=== PATIENT | female | born 1950 | race African-American/Black ===

== ENCOUNTER 2016-12-17 17:11 | Emergency (ER) | payer MEDICARE, OTHER ==
[~2016-12-17] VITALS: Ht 170.2 cm; Wt 108.9 kg
[~2016-12-17 17:11] MED LIST: ALPR0.5T6 PO; AZIT250T6 PO; BUPR150T11 PO; CEPH-264 PO; CYCL10TA2 PO; ERGO500012 PO; ESCI10TA PO; FLUT1DIS IH; FURO-68 PO; HYDR-971 PO; HYDR200T5 PO; LISI1TAB7 PO; MELO-150 PO; MOME17SP NS; OMEP40CA5 PO; ONDA4TAB10 SL; POTA10TA31 PO; PRED2.5T PO; PRED20TA PO; PROM6.25 PO; TIOT18CA IH
[2016-12-17 17:45] VITALS: BP 151/81
[2016-12-17] MEDS ORDERED: PREDNISONE 20 MG TABLET PO ONE (18:15)
[2016-12-17] MEDS ORDERED: OXYCODONE/APAP 5/325 TABLET. PO ONE (18:15)
[2016-12-17] MEDS ORDERED: PRED50TA PO (18:26)
--- NOTE | 2016-12-17 18:27 | PHYS DOC ---
Past Medical History Past Medical History: Anxiety, Arthritis, Asthma, CHF, COPD, GERD, Hypertension , Other Additional Past Medical Histor: RA Past Surgical History: No Surgical History Alcohol Use: Occasionally Drug Use: None Adult General Chief Complaint Chief Complaint: LOWER EXTREMITY SWELLING HPI HPI This is a 66-year-old female is had some swelling to her right dorsum of her hand as well as bilateral lower extremities. Patient has had this before. Patient does have history of rheumatoid arthritis and states she has had swelling with her rheumatoid before. She denies any chest pain or shortness breath. She denies any history of heart failure. Patient does take anti- inflammatories and does state steroids have helped her symptoms in the past. She states her pain is a 7/10 on the pain scale in the extremities described. Review of Systems Review of Systems Constitutional: Denies fever or chills [] Eyes: Denies change in visual acuity, redness, or eye pain [] HENT: Denies nasal congestion or sore throat [] Respiratory: Denies cough or shortness of breath [] Cardiovascular: No additional information not addressed in HPI [] GI: Denies abdominal pain, nausea, vomiting, bloody stools or diarrhea [] : Denies dysuria or hematuria [] Musculoskeletal: Denies back pain, has joint pain [] Integument: Denies rash or skin lesions [] Neurologic: Denies headache, focal weakness or sensory changes [] Endocrine: Denies polyuria or polydipsia [] Current Medications Current Medications Current Medications Medications (Trade) Dose Ordered Sig/Andre Start Time Stop Time Status Last Admin Dose Admin Oxycodone/ Acetaminophen (Percocet 5/325) 1 tab 1X ONCE 12/17/16 18:15 12/17/16 18:16 DC 12/17/16 18:14 1 TAB Prednisone (Prednisone) 60 mg 1X ONCE 12/17/16 18:15 12/17/16 18:16 DC 12/17/16 18:14 60 MG Allergies Allergies Allergies Coded Allergies Type Severity Reaction Last Updated Verified aspirin Allergy Intermediate Swelling 09/01/14 No Physical Exam Physical Exam Constitutional: Well developed, well nourished, no acute distress, non-toxic appearance. [] HENT: Normocephalic, atraumatic, bilateral external ears normal, oropharynx moist, no oral exudates, nose normal. [] Eyes: PERRLA, EOMI, conjunctiva normal, no discharge. [] Neck: Normal range of motion, no tenderness, supple, no stridor. [] Cardiovascular:Heart rate regular rhythm, no murmur [] Lungs & Thorax: Bilateral breath sounds clear to auscultation [] Abdomen: Bowel sounds normal, soft, no tenderness, no masses, no pulsatile masses. [] Skin: Warm, dry, no erythema, no rash. [] Back: No tenderness, no CVA tenderness. [] Extremities: Moderate tenderness and swelling to the dorsum of the right hand, no cyanosis, no clubbing, ROM intact, mild edema of the bilateral lower extremities. [] Neurologic: Alert and oriented X 3, normal motor function, normal sensory function, no focal deficits noted. [] Psychologic: Affect normal, judgement normal, mood normal. [] Current Patient Data Vital Signs Vital Signs Date Time Temp Pulse Resp B/P Pulse Ox O2 Delivery O2 Flow Rate FiO2 12/17/16 17:45 98.3 79 20 151/81 97 Room Air 98.3 EKG EKG [] Radiology/Procedures Radiology/Procedures [] Course & Med Decision Making Course & Med Decision Making Pertinent Labs and Imaging studies reviewed. (See chart for details) This nontoxic appearance 66-year-old female has swelling in her upper extremity and lower extremities and history of rheumatoid arthritis. I do not see any indication at this time to perform any laboratory workup. I will be prescribing her a course of prednisone for her symptoms and telling her to follow-up over the next several days for her symptoms. I administered 1 dose of Percocet and prednisone here. I will be discharging her with a course of prednisone with no pain meds. I will encourage her to continue to take her anti-inflammatories as I believe her symptoms are all inflammatory in etiology. Dragon Disclaimer Dragon Disclaimer This electronic medical record was generated, in whole or in part, using a voice recognition dictation system. Departure Departure Impression: Primary Impression: Swelling Additional Impression: Rheumatoid arthritis flare Disposition: 01 HOME, SELF-CARE Condition: STABLE Referrals: NO PCP (PCP) Patient Instructions: Arthritis, Nonspecific, [id number] Additional Instructions: Please follow up with your primary doctor in 2-3 days for your swelling and pain. Take your steroid as prescribed. Return to the ER if you develop any worsening of your symptoms. Scripts Prednisone 50 Mg Tablet1 Tab PO DAILY #5 TAB Prov:MORAIMA PERES DO 12/17/16 Problem Qualifiers MORAIMA PERES DO Dec 17, 2016 18:27
== END 2016-12-17 18:34 | disposition home or self-care (01) ==
LOC: ER 17:11
DX: M06.89 Other specified rheumatoid arthritis, multiple sites (principal); F41.9 Anxiety disorder, unspecified; J45.909 Unspecified asthma, uncomplicated; I11.0 Hypertensive heart disease with heart failure; I50.9 Heart failure, unspecified; J44.9 Chronic obstructive pulmonary disease, unspecified; K21.9 Gastro-esophageal reflux disease without esophagitis; Z79.1 Long term (current) use of non-steroidal anti-inflammatories (NSAID); Z79.52 Long term (current) use of systemic steroids; Z88.6 Allergy status to analgesic agent
CPT/HCPCS: 29125; 99284; J7512

== ENCOUNTER 2017-04-29 18:51 | Emergency (ER) | payer MEDICARE, OTHER ==
[~2017-04-29] VITALS: Ht 172.7 cm; Wt 108.9 kg
[~2017-04-29 18:51] MED LIST changes: -ERGO500012 PO; +ERGO500027 PO; -MELO-150 PO; +MELO15TA23 PO; +PRED50TA PO
[2017-04-29 19:20] VITALS: BP 148/84
[2017-04-29] MEDS ORDERED: HYDROcodone/APAP 5/325MG 1 TAB TABLET PO ONE (19:30)
--- NOTE | 2017-04-29 19:49 | PHYS DOC ---
Past Medical History Past Medical History: Anxiety, Arthritis, Asthma, CHF, COPD, GERD, Hypertension , Other Additional Past Medical Histor: RA Past Surgical History: No Surgical History Alcohol Use: Occasionally Drug Use: None Adult General Chief Complaint Chief Complaint: UPPER EXTREMITY PAIN HPI HPI Patient is a 67 year old female with history of hypertension, CHF, anxiety, COPD, and rheumatoid arthritis who presents today with exacerbation of chronic left shoulder pain mild in nature worse on movement for the last 7 days due to rheumatoid arthritis. 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 Review of Systems Review of Systems Constitutional: Denies fever or chills [] Eyes: Denies change in visual acuity, redness, or eye pain [] Musculoskeletal: Left shoulder pain Integument: Denies rash or skin lesions [] Neurologic: Denies headache, focal weakness or sensory changes [] Endocrine: Denies polyuria or polydipsia [] Current Medications Current Medications Current Medications Medications (Trade) Dose Ordered Sig/Andre Start Time Stop Time Status Last Admin Dose Admin Acetaminophen/ Hydrocodone Bitart (Lortab 5/325) 2 tab 1X ONCE 04/29/17 19:30 04/29/17 19:32 DC 04/29/17 19:46 2 TAB Allergies Allergies Allergies Coded Allergies Type Severity Reaction Last Updated Verified aspirin Allergy Intermediate Swelling 09/01/14 No Physical Exam Physical Exam Constitutional: Well developed, well nourished, no acute distress, non-toxic appearance. [] HENT: Normocephalic, atraumatic, bilateral external ears normal, oropharynx moist, no oral exudates, nose normal. [] Skin: Warm, dry, no erythema, no rash. [] Back: No tenderness, no CVA tenderness. [] Extremities: Left shoulder with no obvious edema and no obvious ecchymosis, tenderness diffusely throughout the left shoulder. Full range of motion to the left shoulder. Adequate abduction and adduction of the left shoulder. Adequate plantar flexion and dorsiflexion of the left forearm. +2 left radial pulse. Cap refill less than 2 seconds left upper extremity. Sensation intact to the left upper extremity. Neurologic: Alert and oriented X 3, normal motor function, normal sensory function, no focal deficits noted. [] Psychologic: Affect normal, judgement normal, mood normal. [] Current Patient Data Vital Signs Vital Signs Date Time Temp Pulse Resp B/P (MAP) Pulse Ox O2 Delivery O2 Flow Rate FiO2 04/29/17 19:46 Room Air 04/29/17 19:20 98.0 63 20 148/84 (105) 98 98.0 EKG EKG [] Radiology/Procedures Radiology/Procedures [] Course & Med Decision Making Course & Med Decision Making Pertinent Labs and Imaging studies reviewed. (See chart for details) Patient is in the ED with exacerbation of left shoulder pain due to rheumatoid arthritis. She requested pain medicine in the ED. She was given 2 hydrocodone 7 discharge. 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 Dragon Disclaimer Dragon Disclaimer This electronic medical record was generated, in whole or in part, using a voice recognition dictation system. Departure Departure Impression: Primary Impression: Left shoulder pain Additional Impression: Rheumatoid arthritis flare Disposition: HOME, SELF-CARE Condition: STABLE Referrals: NO PCP (PCP) Follow-up with your salesperson burial needs as soon as possible Patient Instructions: Rheumatoid Arthritis, [id number], Shoulder Pain, Easy- to-Read Additional Instructions: You were seen for ongoing pain due to rheumatoid arthritis. Follow-up with your own doctor or a doctor from the list provided as soon as possible. Problem Qualifiers Primary Impression: Left shoulder pain Chronicity: chronic Qualified Codes: M25.512 - Pain in left shoulder; G89.29 - Other chronic pain BROOKS BERGER APRN Apr 29, 2017 19:49
== END 2017-04-29 19:51 | disposition home or self-care (01) ==
LOC: ER 18:51
DX: G89.29 Other chronic pain (principal); M25.512 Pain in left shoulder; M06.9 Rheumatoid arthritis, unspecified; I11.0 Hypertensive heart disease with heart failure; I50.9 Heart failure, unspecified; J44.9 Chronic obstructive pulmonary disease, unspecified; K21.9 Gastro-esophageal reflux disease without esophagitis; Z88.6 Allergy status to analgesic agent
CPT/HCPCS: 99284

== ENCOUNTER 2018-03-14 20:52 | Emergency (ER) | payer MEDICARE, OTHER ==
[2018-03-14] MEDS: ACETAMINOPHEN 325 MG TABLET. PO (23:10)
== END 2018-03-14 21:50 | disposition home or self-care (01) ==
LOC: ER 21:50
DX: S82.55XA Nondisplaced fracture of medial malleolus of left tibia, initial encounter for closed fracture (principal); I11.0 Hypertensive heart disease with heart failure; I50.9 Heart failure, unspecified; J44.9 Chronic obstructive pulmonary disease, unspecified; K21.9 Gastro-esophageal reflux disease without esophagitis; M06.9 Rheumatoid arthritis, unspecified; Z88.6 Allergy status to analgesic agent; W18.39XA Other fall on same level, initial encounter; Y93.89 Activity, other specified; Y99.8 Other external cause status; Y92.89 Other specified places as the place of occurrence of the external cause
CPT/HCPCS: 29515; 73110; 73610; 99284-25

== ENCOUNTER → 2018-10-19 | Outpatient (CLI) | payer MEDICARE, OTHER ==
[2018-03-14 21:30] VITALS: BP 134/62
[~2018-10-19] MED LIST changes: -ESCI10TA PO; +ESCITALOPRAM OX10 MG PO; +HYDR-3164 PO; -HYDR-971 PO; -PROM6.25 PO; +PROM6.257 PO
--- NOTE | 2018-10-19 16:06 | RAD ---
Chest, 2 views, 10/19/2018: HISTORY: Shortness of breath and cough Comparison is made to a study from 07/13/2018. The heart size is normal. There is calcific plaquing of the aorta. There is mild parenchymal scarring in the right middle lobe as best seen on the lateral view. No acute infiltrate is seen. There is no evidence of pleural fluid. Moderate spurring is present in the spine. IMPRESSION: No acute cardiopulmonary abnormality is detected. Electronically signed by: Waylon Orellana MD (10/19/2018 4:02 PM) [facility]
== END | disposition home or self-care (01) ==
LOC: RAD 12:04
PROVIDERS: ATTEND Internal Medicine Pulmonary Disease
DX: J98.4 Other disorders of lung (principal)
CPT/HCPCS: 71046

== ENCOUNTER → 2018-12-22 | Outpatient (CLI) | payer MEDICARE, OTHER ==
[2018-03-14 21:30] VITALS: BP 134/62
[2018-12-22 10:50] LABS: BASO % 1 % (0-3); EOS # 0.2 x10^3/uL (0.0-0.7); EOS % 3 % (0-3); HEMATOCRIT 33.3 % (36.0-47.0); LYMPH # 1.8 x10^3/uL (1.0-4.8); LYMPH % 27 % (24-48); MEAN CORPUSCULAR HEMOGLOBIN 33 pg (25-35); MEAN CORPUSCULAR HGB CONC 33 g/dL (31-37); MEAN CORPUSCULAR VOLUME 101 fL (79-100); MONO # 0.5 x10^3/uL (0.0-1.1); MONO % 7 % (0-9); NEUT # 4.2 x10^3uL (1.8-7.7); NEUT % 62 % (31-73); PLATELET COUNT 278 x10^3/uL (140-400); RED BLOOD COUNT 3.29 x10^6/uL (3.50-5.40); RED CELL DISTRIBUTION WIDTH 15.2 % (11.5-14.5); WHITE BLOOD COUNT 6.7 x10^3/uL (4.0-11.0)
[2018-12-22 11:23] LABS: ALBUMIN 3.7 g/dL (3.4-5.0); CALCIUM 9.1 mg/dL (8.5-10.1); CREATININE 1.1 mg/dL (0.6-1.0); GFR 59.9; PHOSPHORUS 3.4 mg/dL (2.6-4.7); POTASSIUM 3.9 mmol/L (3.5-5.1)
[2018-12-22 19:13] LABS: CALCIUM PTH 9.5 mg/dL (8.7-10.3); CREATININE PTH 0.89 mg/dL (0.57-1.00); PHOSPHORUS PTH 3.2 mg/dL (2.5-4.5); PTH INTACT 121 pg/mL (15-65)
[2018-12-22 23:15] LABS: UR PROTEIN RD 44.4 mg/dL (Not Estab.)
== END | disposition home or self-care (01) ==
LOC: LAB 10:12
PROVIDERS: ATTEND Internal Medicine Nephrology
DX: I13.0 Hypertensive heart and chronic kidney disease with heart failure and stage 1 through stage 4 chronic kidney disease, or unspecified chronic kidney disease (principal); N18.3 Chronic kidney disease, stage 3 (moderate); I50.9 Heart failure, unspecified; D63.1 Anemia in chronic kidney disease; Z68.37 Body mass index [BMI] 37.0-37.9, adult
CPT/HCPCS: 36415; 80069; 82570; 82728; 83540; 83550; 83970; 84156; 85025

== ENCOUNTER 2019-01-29 13:50 | Emergency (ER) | payer MEDICARE, OTHER ==
[~2019-01-29] VITALS: Ht 167.6 cm; Wt 111.1 kg
[2019-01-29 15:35] VITALS: BP 120/47
--- NOTE | 2019-01-29 16:03 | PHYS DOC ---
Past Medical History Past Medical History: Anxiety, Arthritis, Asthma, CHF, COPD, GERD, Hypertension , Other Additional Past Medical Histor: RA Past Surgical History: No Surgical History Alcohol Use: Occasionally Drug Use: None Adult General Chief Complaint Chief Complaint: ANKLE PROBLEM HPI HPI Patient is a 69 year old AA female who presents to the emergency Department today with complaints of increased swelling and pain in her left lower extremity for the last 2-3 days. She denies any recent injury, she states that she fractured her left ankle approximately 6 months ago. [facility] but never found out the results of that testing. She denies any lengthly travel by air or car. She denies any chest pain, shortness of breath, numbness, tingling, or weakness of the affected extremity. Patient states she has been wearing an ankle Tomy wrap as she was instructed to do at the [facility] and ankle [place]. Currently, she rates her pain an 8 out of 10 on the pain scale she has been taking hydrocodone her tramadol was prescribed by her primary care doctor for relief of her pain. When she ambulates or moves her ankle the pain increases to a 10 out of 10. Review of Systems Review of Systems Constitutional: Denies fever or chills [] Respiratory: Denies shortness of breath [] Cardiovascular: No additional information not addressed in HPI [] Musculoskeletal: See HPI Integument: Denies rash or skin lesions [] Neurologic: Denies headache, focal weakness or sensory changes [] Allergies Allergies Allergies Coded Allergies Type Severity Reaction Last Updated Verified aspirin Allergy Intermediate Swelling 09/01/14 No Physical Exam Physical Exam Constitutional: Well developed, well nourished, no acute distress, non-toxic appearance, obese. [] HENT: Normocephalic, atraumatic, bilateral external ears normal, nose normal. [] Eyes: conjunctiva normal, no discharge. [] Neck: Normal range of motion, no stridor. [] Abdomen: Bowel sounds normal, soft, no tenderness, no masses, no pulsatile masses. [] Skin: Warm, dry, no erythema, no rash; 2+ edema LLE [] Extremities: No cyanosis, no clubbing, ROM intact; L ankle generalized TTP, ROM intact, 2+ pedal and posterior tibial pulses, cap refill <2 seconds, no visible deformity, no crepitus Neurologic: Alert and oriented X 3, normal motor function, normal sensory function, no focal deficits noted. [] Psychologic: Affect normal, judgement normal, mood normal. [] Current Patient Data Vital Signs Vital Signs Date Time Temp Pulse Resp B/P (MAP) Pulse Ox O2 Delivery O2 Flow Rate FiO2 01/29/19 15:35 98.1 77 120/47 (71) 97 98.1 01/29/19 15:26 20 Room Air EKG EKG [] Radiology/Procedures Radiology/Procedures [] Course & Med Decision Making Course & Med Decision Making Pertinent Labs and Imaging studies reviewed. (See chart for details) 1615- Pt no longer in room left without notifying staff [] Dragon Disclaimer Dragon Disclaimer This electronic medical record was generated, in whole or in part, using a voice recognition dictation system. Departure Departure Impression: Primary Impression: Left against medical advice Referrals: EUGENIO GUNDERSON APRN (PCP) MJ ROSE APRN Jan 29, 2019 16:03
== END 2019-01-29 16:15 | disposition left against medical advice (07) ==
LOC: ER 13:50
DX: M79.605 Pain in left leg (principal); R22.42 Localized swelling, mass and lump, left lower limb; M25.572 Pain in left ankle and joints of left foot; K21.9 Gastro-esophageal reflux disease without esophagitis; I11.9 Hypertensive heart disease without heart failure; I50.9 Heart failure, unspecified; J44.9 Chronic obstructive pulmonary disease, unspecified; R41.0 Disorientation, unspecified; Z87.81 Personal history of (healed) traumatic fracture; Z88.6 Allergy status to analgesic agent
CPT/HCPCS: 99281

== ENCOUNTER 2019-12-23 04:14 | Emergency (ER) | payer MEDICARE, OTHER ==
[~2019-12-23] VITALS: Ht 165.1 cm; Wt 100.0 kg
[~2019-12-23 04:14] MED LIST changes: +LISI1TAB20 PO; -LISI1TAB7 PO; +OMEP40CA45 PO; -OMEP40CA5 PO
[2019-12-23 04:17] VITALS: BP 151/49
--- NOTE | 2019-12-23 04:46 | PHYS DOC ---
Past Medical History Past Medical History: Anxiety, Arthritis, Asthma, CHF, COPD, GERD, Hypert ension, Other Additional Past Medical Histor: RA Past Surgical History: No Surgical History Alcohol Use: Occasionally Drug Use: None Adult General Chief Complaint Chief Complaint: [facility]UR[facility] HPI 69-year-old male with underlying history of hypertension, rheumatoid arthritis presents to the emergency department with acute on chronic bilateral knee pain. Patient states she's had increased pain since last Thursday. She is already on Lortab 7.5 mg, states she went to her rheumatology physician who attempted corticosteroid injection however was unsuccessful. Patient denies any chest pain, shortness breath, nausea, vomiting, headache or visual change. She does have pain is worsened with ambulation. Patient denies any fever. All other ROS negative unless documented in HPI Review of Systems Review of Systems See Above Allergies Allergies Allergies Coded Allergies Type Severity Reaction Last Updated Verified aspirin Allergy Intermediate Swelling 09/01/14 No Physical Exam Physical Exam See Above Constitutional: Well developed, well nourished, no acute distress, non-toxic appearance. [] HENT: Normocephalic, atraumatic, bilateral external ears normal, oropharynx moist, no oral exudates, nose normal. [] Cardiovascular:Heart rate regular rhythm, no murmur [] Lungs & Thorax: Bilateral breath sounds clear to auscultation [] Skin: Warm, dry, no erythema, no rash. [] Back: No tenderness, no CVA tenderness. [] Extremities: No tenderness, no edema. bilateral knee tenderness[] Neurologic: Alert and oriented X 3, no focal deficits noted. [] Psychologic: Affect normal, judgement normal, mood normal. [] EKG EKG [] Radiology/Procedures Radiology/Procedures [] Course & Med Decision Making Course & Med Decision Making Pertinent Labs and Imaging studies reviewed. (See chart for details) []69-year-old male with underlying history of hypertension, rheumatoid arthritis presents to the emergency department with acute on chronic bilateral knee pain. Patient states she's had increased pain since last Thursday. She is already on Lortab 7.5 mg, states she went to her rheumatology physician who attempted corticosteroid injection however was unsuccessful. Patient denies any chest pain, shortness breath, nausea, vomiting, headache or visual change. She does have pain is worsened with ambulation. Patient denies any fever. 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 Departure Departure Impression: Primary Impression: Rheumatoid arthritis flare Disposition: 01 HOME, SELF-CARE Condition: STABLE Referrals: EUGENIO GUNDERSON APRN (PCP) Patient Instructions: Rheumatoid Arthritis, [id number] Additional Instructions: Recommend follow up with PCP 3 - 5 days Return to the ER with worsening symptoms, intractable pain, fever, altered mental status Tylenol/Motrin as needed for pain Continue narcotics as prescribed Recommend following up with rheumatology and PCP as scheduled SHILA PADILLA MD Dec 23, 2019 04:46
[2019-12-23] MEDS ORDERED: DEXAMETHASONE SOD PHOS 4 MG/ML VIAL IM ONE (05:00)
[2019-12-23] MEDS ORDERED: KETOROLAC 60 MG/2 ML VIAL. IM ONE (05:00)
== END 2019-12-23 05:20 | disposition home or self-care (01) ==
LOC: ER 04:14
DX: M06.9 Rheumatoid arthritis, unspecified (principal); G89.29 Other chronic pain; M25.561 Pain in right knee; M25.562 Pain in left knee; I11.0 Hypertensive heart disease with heart failure; I50.9 Heart failure, unspecified; J44.9 Chronic obstructive pulmonary disease, unspecified; K21.9 Gastro-esophageal reflux disease without esophagitis; Z88.6 Allergy status to analgesic agent
CPT/HCPCS: 96372; 99284; J1100; J1885

== ENCOUNTER 2020-03-21 15:58 | Emergency (ER) | payer MEDICARE, OTHER ==
[~2020-03-21] VITALS: Ht 170.2 cm; Wt 113.6 kg
[2020-03-21 16:13] VITALS: BP 151/49
[2020-03-21] MEDS ORDERED: KETOROLAC 60 MG/2 ML VIAL. IM ONE (16:15)
[2020-03-21] MEDS ORDERED: DEXAMETHASONE SOD PHOS 20 MG/5 ML VIAL. IM ONE (16:15)
--- NOTE | 2020-03-21 16:22 | PHYS DOC ---
Past Medical History Past Medical History: Anxiety, Arthritis, Asthma, CHF, COPD, GERD, Hypert ension, Other Additional Past Medical Histor: RA Past Surgical History: No Surgical History Smoking Status: Former Smoker Alcohol Use: Occasionally Drug Use: None General Adult EDM: Chief Complaint: LOWER EXTREMITY SWELLING HPI: HPI: Patient is a 70 year old Female who presents with with left knee and left ankle pain since "the weather changed". She states probably got worse on Thursday. She states when she was here last time she was given a shot of medication and that helped her alot. Patient has a history of rheumatoid arthritis. She states this feels exactly like a flare. She is ambulatory but is slightly limping on the left leg due to mostly her left lateral ankle pain. She rates her pain a 10 out of 10. States she has not taken any pain medications. When I looked back in the chart last time she was here for her rheumatoid arthritis pain she was given a shot of Toradol and Decadron. This is the medication I will give her again. She has a history of remote arthritis, hypertension, CHF, COPD, asthma, arthritis, anxiety, GERD. Review of Systems: Review of Systems: Musculoskeletal: Denies back pain. Left knee and ankle joint pain. [] Heart Score: Risk Factors: Risk Factors: DM, Current or recent (<one month) smoker, HTN, HLP, family history of CAD, obesity. Risk Scores: Score 0 - 3: 2.5% MACE over next 6 weeks - Discharge Home Score 4 - 6: 20.3% MACE over next 6 weeks - Admit for Clinical Observation Score 7 - 10: 72.7% MACE over next 6 weeks - Early Invasive Strategies Allergies: Allergies: Allergies Coded Allergies Type Severity Reaction Last Updated Verified aspirin Allergy Intermediate Swelling 09/01/14 No Physical Exam: PE: Constitutional: Well developed, well nourished, no acute distress, non-toxic appearance. [] HENT: Normocephalic, atraumatic, bilateral external ears normal, oropharynx moist, no oral exudates, nose normal. [] Eyes: PERRLA, EOMI, conjunctiva normal, no discharge. [] Neck: Normal range of motion, no tenderness, supple, no stridor. [] Cardiovascular:Heart rate regular rhythm, no murmur [] Lungs & Thorax: Bilateral breath sounds clear to auscultation [] Abdomen: Bowel sounds normal, soft, no tenderness, no masses, no pulsatile masses. [] Skin: Warm, dry, no erythema, no rash. [] Back: No tenderness, no CVA tenderness. [] Extremities: No tenderness, no cyanosis, no clubbing, Left ankle and knee ROM limited intact due to stiffness and pain, no edema. [] Neurologic: Alert and oriented X 3, normal motor function, normal sensory function, no focal deficits noted. [] Psychologic: Affect normal, judgement normal, mood normal. [] EKG: EKG: [] Radiology/Procedures: Radiology/Procedures: [] Course & Med Decision Making: Course & Med Decision Making Pertinent Labs and Imaging studies reviewed. (See chart for details) No swelling of her joints. Patient's knees bilaterally and her ankles are stiff. Patient states it is mainly painful when she tries to put pressure on her ankles or her extremities when she goes to walk. When asked the quality of the pain she states " I do not know it is my rheumatoid arthritis pain. It just hurts". Pedal pulse strong and present. Cap refill less than 3 seconds. Patient states that the swelling in her bilateral lower extremities which is equally 2+ is normal for her. She denies any numbness or tingling, skin color changes, skin temperature changes. No calf pain tenderness. No unilateral swelling of extremities. Denies any injury. Patient has had a past Left ankle fracture of which she states she has since developed arthritis in. No tenderness to any joints. No redness to any joints. No laxity in joints. Patient is educated that she needs to follow-up either with her primary care or her rheumatoid doctor the next 3 to 5 days. [] Dragon Disclaimer: Monica Disclaimer: This electronic medical record was generated, in whole or in part, using a voice recognition dictation system. Departure Departure Impression: Primary Impression: Left knee pain Qualified Codes: M25.562 - Pain in left knee; G89.29 - Other chronic pain Additional Impression: Left ankle pain Qualified Codes: M25.572 - Pain in left ankle and joints of left foot; G89.29 - Other chronic pain Disposition: 01 HOME, SELF-CARE Condition: STABLE Referrals: SPENSER PRICE MD (PCP) Patient Instructions: Rheumatoid Arthritis Additional Instructions: Follow up with your rheumatoid doctor as soon as possible. JETHRO CHA CIRCULAR SAW EDGE FUSER Mar 21, 2020 16:22
== END 2020-03-21 16:32 | disposition home or self-care (01) ==
LOC: ER 15:58
DX: G89.29 Other chronic pain (principal); M25.562 Pain in left knee; M79.672 Pain in left foot; F41.9 Anxiety disorder, unspecified; M19.90 Unspecified osteoarthritis, unspecified site; J44.9 Chronic obstructive pulmonary disease, unspecified; K21.9 Gastro-esophageal reflux disease without esophagitis; I50.9 Heart failure, unspecified; I11.0 Hypertensive heart disease with heart failure; Z87.891 Personal history of nicotine dependence
CPT/HCPCS: 96372; 99284; J1100; J1885

== ENCOUNTER 2020-09-22 15:53 | Emergency (ER) | payer MEDICARE, OTHER ==
[~2020-09-22] VITALS: Ht 172.7 cm; Wt 100.0 kg
[2020-09-22 16:26] VITALS: BP 158/76
[2020-09-22] MEDS ORDERED: PROM6.257 PO (16:48)
--- NOTE | 2020-09-22 16:50 | PHYS DOC ---
Past Medical History Past Medical History: Anxiety, Arthritis, Asthma, CHF, COPD, GERD, Hypert ension, Other Additional Past Medical Histor: RA Past Surgical History: No Surgical History Smoking Status: Former Smoker Alcohol Use: Occasionally Drug Use: None General Adult EDM: Chief Complaint: COUGH HPI: HPI: Patient is a 70 year old female who presents with a request to have her Phenergan cough syrup refilled. Patient states that she seen her Dr. Price earlier this month and was given a prescription for liquid Phenergan for cough which helps with her chronic cough patient states that she has run out and wishes to have a prescription refill. Patient denies fever, chills, visual changes, nasal congestion, shortness of breath, chest pain, or swelling of her extremities. Patient denies any abdominal pain, nausea, vomiting, diarrhea, constipation. Patient denies any problems urinating, denies any STI concerns. Patient denies any back pains or pain in her joints, patient denies skin rashes, headaches, focal weaknesses, or sensory changes. Patient denies any swelling of her glands, any recent depressions or anxieties, denies homicidal or suicidal ideation. Patient does complain of a chronic cough that she has battled for years stating that her cough has not changed and that it has not become worse nor any better. Review of Systems: Review of Systems: Constitutional: Denies fever or chills. Eyes: Denies change in visual acuity. HENT: Denies nasal congestion or sore throat. Respiratory: Denies shortness of breath. Complains of chronic dry cough. Cardiovascular: Denies chest pain or edema. GI: Denies abdominal pain, nausea, vomiting, bloody stools or diarrhea. : Denies dysuria. Musculoskeletal: Denies back pain or joint pain. Integument: Denies rash. Neurologic: Denies headache, focal weakness or sensory changes. Lymphatic: Denies swollen glands. Psychiatric: Denies depression or anxiety. Denies homicidal or suicidal ideations. Heart Score: Risk Factors: Risk Factors: DM, Current or recent (<one month) smoker, HTN, HLP, family history of CAD, obesity. Risk Scores: Score 0 - 3: 2.5% MACE over next 6 weeks - Discharge Home Score 4 - 6: 20.3% MACE over next 6 weeks - Admit for Clinical Observation Score 7 - 10: 72.7% MACE over next 6 weeks - Early Invasive Strategies Family History: Family History: Family history of hypertension, stroke, diabetes. Current Medications: Spiriva inhalation daily, potassium chloride 10 mEq twice daily, lisinopril/hydrochlorothiazide 20-25 mg daily, Advair [id number] Diskus 1 puff twice daily, vitamin D2 1 capsule daily, meloxicam 15 mg tablets daily, Lasix 40 mg daily. Allergies: Allergies: Allergies Coded Allergies Type Severity Reaction Last Updated Verified aspirin Allergy Intermediate Swelling 09/01/14 No Physical Exam: PE: Constitutional: Well developed, well nourished, no acute distress, non-toxic appearance. HENT: Normocephalic, atraumatic, bilateral external ears normal, oropharynx moist, no oral exudates, nose normal. Eyes: PERRLA, EOMI, conjunctiva normal, no discharge. Neck: Normal range of motion, no tenderness, supple, no stridor. Cardiovascular:Heart rate regular rhythm, no murmur Lungs & Thorax: Bilateral breath sounds clear to auscultation all lung hurd, no cough noted during physical exam. Abdomen: Bowel sounds normal, soft, no tenderness, no masses, no pulsatile masses. Skin: Warm, dry, no erythema, no rash. Back: No tenderness, no CVA tenderness. Extremities: No tenderness, no cyanosis, no clubbing, ROM intact, no edema. Neurologic: Alert and oriented X 3, normal motor function, normal sensory fu nction, no focal deficits noted. Psychologic: Affect normal, judgement normal, mood normal. Current Patient Data: Vital Signs: Vital Signs Date Time Temp Pulse Resp B/P (MAP) Pulse Ox O2 Delivery O2 Flow Rate FiO2 09/22/20 16:26 97.4 53 18 158/76 (103) 100 Room Air 97.4 EKG: EKG: [] Radiology/Procedures: Radiology/Procedures: [] Course & Med Decision Making: Course & Med Decision Making Pertinent Labs and Imaging studies reviewed. (See chart for details) 70-year-old female patient presents emergency department with request to have her cough medicine refilled. Patient states she has a chronic cough which she dealt with for years that has not gotten any better or any worse. Patient states she last received a prescription from her Dr. Price earlier this month. Patient did bring her prescription bottle with her. The patient bottle was empty, and if taken as directed she should have been empty for approximately 1 week however patient states she has only been out of her medication for the last for 5 days. Discussed with patient that she needs to have her prescriptions filled at her physicians office with regular appointments. Discussed with patient that I would prescribe a very small amount in order for her to see her doctor this week. Patient states that she is amenable to this plan, also states that she will follow-up with her doctor for any further medication refills. Patient's physical exam was negative for acute infectious process, nonconcerning for acute infectious process. Patient medication will be refilled, patient amenable to plan, reviewed discharge instructions, return to ER concerns, patient discharged home without incident Dragon Disclaimer: Dragon Disclaimer: This electronic medical record was generated, in whole or in part, using a voice recognition dictation system. Departure Departure Impression: Primary Impression: Bronchitis Disposition: 01 DC HOME SELF CARE/HOMELESS Condition: GOOD Referrals: SPENSER PRICE MD (PCP) Patient Instructions: Bronchitis Additional Instructions: Take medications as prescribed, follow with your Dr. Price for further problems and management with prescriptions. Return to the emergency department for worsening symptoms or further concerns. Scripts Promethazine Hcl (PROMETHAZINE HCL) 6.25 Mg/5 Ml Syrup 5 ML PO TID for COUGH, #90 ML 0 Refills Prov: GABBY MALONEY APRN 09/22/20 GABBY MALONEY APRN Sep 22, 2020 16:50
== END 2020-09-22 17:01 | disposition home or self-care (01) ==
LOC: ER 15:53
DX: J44.9 Chronic obstructive pulmonary disease, unspecified (principal); K21.9 Gastro-esophageal reflux disease without esophagitis; I11.0 Hypertensive heart disease with heart failure; I50.9 Heart failure, unspecified; Z87.891 Personal history of nicotine dependence; Z88.6 Allergy status to analgesic agent
CPT/HCPCS: 99283

== ENCOUNTER 2021-09-24 09:12 | Emergency (ER) | payer MEDICARE, OTHER ==
[~2021-09-24] VITALS: Ht 170.2 cm; Wt 105.0 kg
[~2021-09-24 09:12] MED LIST changes: +CYCL10TA19 PO; -CYCL10TA2 PO; -LISI1TAB20 PO; +LISI1TAB39 PO; -OMEP40CA45 PO; +OMEP40CA7 PO
[2021-09-24 09:20] VITALS: BP 185/96
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
--- NOTE | 2021-09-24 10:16 | RAD ---
Exam Date: 09/24/2021 10:[address] HEAD/BRAIN WO Indication: Reason: headache, confusion / Spl. Instructions: / History: . TECHNIQUE: Head CT was performed without intravenous contrast. One or more of the following dose re duction techniques were utilized: *Automated exposure control (AEC) *Adjustment of mA and/or kV according to patient size *Use of iterative reconstruction technique *CT scan done according to ALARA, or ALARA/IMAGE GENTLY FINDINGS: The ventricles and sulci are normal for the patient's stated age. There is no evidence of acute int racranial hemorrhage, extra-axial collection, mass effect, midline shift, or acute territorial infarc t. No lesion of the skull base or the calvarium is seen. The visualized paranasal sinuses, mastoid ai r cells and orbits are normal in appearance. IMPRESSION: No evidence for acute intracranial abnormality. Electronically signed by: Luis Jean MD (09/24/2021 10:13 AM) [id number]
[2021-09-24 10:32] LABS: BILIRUBIN,URINE MODERATE (NEG); CLARITY,URINE CLEAR; COLOR,URINE YELLOW; NITRITE,URINE NEGATIVE (NEG); PH,URINE 5.5 (<5.0-8.0); PROTEIN,URINE >=300 mg/dL (NEG-TRACE); UROBILINOGEN,URINE 0.2 mg/dL (0.2 mg/dL)
[2021-09-24 10:48] LABS: BACTERIA,URINE 0 /HPF (0-FEW); RBC,URINE 0 /HPF (0-2); WBC,URINE 0 /HPF (0-4)
== END 2021-09-24 11:35 | disposition left against medical advice (07) ==
LOC: ER 09:12
DX: R41.82 Altered mental status, unspecified (principal); R51.9 Headache, unspecified; J44.9 Chronic obstructive pulmonary disease, unspecified; I11.0 Hypertensive heart disease with heart failure; I50.9 Heart failure, unspecified; K21.9 Gastro-esophageal reflux disease without esophagitis; Z87.891 Personal history of nicotine dependence; Z88.6 Allergy status to analgesic agent
CPT/HCPCS: 70450; 81001; 99284-25; 99285-25

== ENCOUNTER 2021-09-30 15:07 | Inpatient (IN) | payer MEDICARE, OTHER ==
[~2021-09-30] VITALS: Ht 172.7 cm; Wt 100.0 kg
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
[2021-09-30] MEDS ORDERED: ZIPRASIDONE IM 20 MG VIAL. IM ONE (16:45)
--- NOTE | 2021-09-30 17:38 | EKG ---
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
--- NOTE | 2021-09-30 17:43 | RAD ---
Exam: CT head INDICATION: Altered mental status TECHNIQUE: Sequential axial images through the head were obtained without the administration of IV co ntrast. Exposure: One or more of the following in the visualized dose reduction techniques were utilized for this examination: 1. Automated exposure control 2. Adjustment of the MA and/or KV according to patient size 3. Use of iterative of reconstructive technique Comparisons: 09/24/2021 FINDINGS: No focal parenchymal lesion or hemorrhage is identified. There is no midline shift or sulcal effaceme nt. Mild patchy evidence in periventricular white matter. No acute vascular territory infarction is ident ified. Sharp-white distinction is preserved. The ventricular system is within normal limits without compression hydrocephalus. The basal cisterns are well maintained. The visualized portions of the paranasal sinuses and mastoid air cells are well-pneumatized. No acute fractures. IMPRESSION: Mild small vessel ischemic change, technically age indeterminate without recent prior imaging. Electronically signed by: Angel Luis Walker MD (09/30/2021 5:41 PM) [facility]
[2021-09-30 17:51] LABS: BASO # 0.1 x10^3/uL (0.0-0.2); BASO % 1 % (0-3); EOS # 0.1 x10^3/uL (0.0-0.7); EOS % 1 % (0-3); HEMATOCRIT 34.4 % (36.0-47.0); HEMOGLOBIN 11.4 g/dL (12.0-15.5); LYMPH # 1.5 x10^3/uL (1.0-4.8); LYMPH % 21 % (24-48); MEAN CORPUSCULAR HEMOGLOBIN 33 pg (25-35); MEAN CORPUSCULAR HGB CONC 33 g/dL (31-37); MEAN CORPUSCULAR VOLUME 100 fL (79-100); MONO # 0.5 x10^3/uL (0.0-1.1); MONO % 8 % (0-9); NEUT # 4.9 x10^3/uL (1.8-7.7); NEUT % 70 % (31-73); PLATELET COUNT 255 x10^3/uL (140-400); RED BLOOD COUNT 3.44 x10^6/uL (3.50-5.40); RED CELL DISTRIBUTION WIDTH 14.7 % (11.5-14.5)
--- NOTE | 2021-09-30 17:51 | RAD ---
Exam: Chest one view INDICATION: Altered mental TECHNIQUE: Frontal view of the chest Comparisons: 10/18/2018 FINDINGS: The cardiomediastinal silhouette and pulmonary vessels are within normal limits. The lung and pleural spaces are clear. IMPRESSION: No acute cardiopulmonary process. Electronically signed by: Angel Luis Walker MD (09/30/2021 5:48 PM) [facility]
[2021-09-30 18:00] LABS: CALCIUM 9.2 mg/dL (8.5-10.1); CREATININE 1.3 mg/dL (0.6-1.0); POTASSIUM 4.1 mmol/L (3.5-5.1)
[2021-09-30 18:04] LABS: BILIRUBIN,URINE NEGATIVE (NEG); CLARITY,URINE CLEAR; COLOR,URINE YELLOW; NITRITE,URINE NEGATIVE (NEG); PROTEIN,URINE 100 mg/dL (NEG-TRACE); UROBILINOGEN,URINE 0.2 mg/dL (0.2 mg/dL)
[2021-09-30 18:12] LABS: BACTERIA,URINE 0 /HPF (0-FEW); RBC,URINE OCC /HPF (0-2); WBC,URINE OCC /HPF (0-4)
[2021-09-30 18:15] LABS: ALBUMIN 3.6 g/dL (3.4-5.0); ALBUMIN/GLOBULIN RATIO 0.8 (1.0-1.7); MAGNESIUM 2.5 mg/dL (1.8-2.4); TOTAL BILIRUBIN 0.4 mg/dL (0.2-1.0); TOTAL PROTEIN 8.3 g/dL (6.4-8.2)
[2021-09-30 18:16] LABS: AMPHETAMINE/METHAMPHETAMINE NEG (NEG); BARBITURATES NEG (NEG); BENZODIAZEPINES NEG (NEG); CANNABINOIDS POS (NEG); COCAINE NEG (NEG); METHADONE NEG (NEG); OPIATES NEG (NEG); PHENCYCLIDINE NEG (NEG)
[2021-10-01] MEDS ORDERED: NITROGLYCERIN SUBLINGUAL 0.4 MG BOTTLE OF 25. SL PRN (05:15)
[2021-10-01] MEDS ORDERED: ONDANSETRON PF 4 MG/2 ML VIAL. IVP PRN (05:15)
[2021-10-01] MEDS ORDERED: ACETAMINOPHEN 325 MG TABLET. PO PRN (05:15)
--- NOTE | 2021-10-01 05:25 | NUR ---
Patient, Maritza Rizvi, received to room 536, agitated, saying we are trying to take her teeth, and her head, patient then becomes quiet, will not answer questions asked per this writer producer, coughing, will not talk to this writer producer regarding having a cold (?), smoking (?). cafeteria monitor applied, she is aggravated with staff, telling us we 'shouldn't touch people there", will not allow us to check her brief, monitoring
[2021-10-01 07:59] VITALS: BP 158/84
--- NOTE | 2021-10-01 10:16 | NUR ---
Pt confused, refusing to answer certain assessment questions. Unable to obtain current medications, pharmacy, etc. Will attempt to obtain when pt oriented, cooperative.
--- NOTE | 2021-10-01 11:02 | NUR ---
SW following. Discussed with RN, pt from home with son, room air, cardiac diet. PAT consult - RN planning to notify SW when pt is appropriate to be seen by PAT. Pt sleeping this morning. SW will continue to follow.
--- NOTE | 2021-10-01 12:05 | NUR ---
Pt with increased agitation, continuously attempting to get up from bed. Unable to be redirected. Pt starts to yell while this RN and TITI Mistry are assist with transfer. Security called in attempts to help redirect pt. Bed alarm in place, pt stating not to turn it off while this RN, security, and [facility] nursing steam and power supervisor in room. Pt educated on need for bed alarm, pt refusing. Pt also refusing any medication. Refusing lunch, states "I think it's poisoned." Requesting bottled water. Bottled water ordered from dietary. Pt uncooperative with POC, continues stating that she wants to go home. Security remains at bedside at this time. Will continue to monitor for changes.
[2021-10-01] MEDS: IV NORMAL SALINE 1000ML BAG 1,000 ML IV SCH ×2 (13:15→21:49)
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
--- NOTE | 2021-10-01 13:30 | NUR ---
Pt going into other pt's rooms, multiple attempts to redirect into own room. Pt continues to be uncooperative. This RN notified security and Dr. Jauregui. No additional orders received at this time. PRN orders in place, pt continues to refuse. [facility], nursing coin machine supervisor also on unit.
[2021-10-01] MEDS ORDERED: cefTRIAXone IV Push 1 GM VIAL. IVP SCH (14:00)
--- NOTE | 2021-10-01 16:09 | NUR ---
Pt continues to walk around unit, yelling "fire" in the hallways, attempts to go into other rooms, unable to be redirected. Easily irritated when instructed to go back into room, pull mask up, etc. This RN called and spoke with son Devonte to update on pt's condition throughout shift. He stated "that's why I brought her here." Did not want to come see her today, stated he would be up tomorrow to see her. , [facility], nursing order takers supervisor, Arina, nurse continuous improvement manager, and Dr. Jauregui all aware of situation. PAT team to come see pt per Courtney, program services planner.
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
[2021-10-01] MEDS: QUEtiapine 25 MG TABLET. PO SCH ×2 (16:30→19:50)
[2021-10-01 19:00] VITALS: BP 145/90
[2021-10-02 03:18] VITALS: BP 141/79
--- NOTE | 2021-10-02 05:32 | NUR ---
Patient Alert with confusion, refused medications would hold pills in mouth till almost melted then spits it out, refused IV medications and flushes, refused library monitor kept in pulled apart and stashed in her pants pocket most of the night, up all night wondering in and out of her room, pacing back and forth, just wondering about, one minute she wanted a shower an other minute refuses it, refused EEG ordered by Dr. Macdonald this A.M., c/o pain all over but when offer Tylenol she refuses it.
[2021-10-02 07:56] LABS: BASO # 0.1 x10^3/uL (0.0-0.2); BASO % 1 % (0-3); EOS # 0.2 x10^3/uL (0.0-0.7); EOS % 3 % (0-3); HEMATOCRIT 33.4 % (36.0-47.0); HEMOGLOBIN 11.2 g/dL (12.0-15.5); LYMPH # 1.8 x10^3/uL (1.0-4.8); LYMPH % 26 % (24-48); MEAN CORPUSCULAR HEMOGLOBIN 33 pg (25-35); MEAN CORPUSCULAR HGB CONC 33 g/dL (31-37); MEAN CORPUSCULAR VOLUME 100 fL (79-100); MONO # 0.6 x10^3/uL (0.0-1.1); MONO % 8 % (0-9); NEUT # 4.4 x10^3/uL (1.8-7.7); NEUT % 63 % (31-73); PLATELET COUNT 208 x10^3/uL (140-400); RED BLOOD COUNT 3.35 x10^6/uL (3.50-5.40); RED CELL DISTRIBUTION WIDTH 14.7 % (11.5-14.5); WHITE BLOOD COUNT 7.1 x10^3/uL (4.0-11.0)
[2021-10-02 08:13] LABS: CALCIUM 9.1 mg/dL (8.5-10.1); CREATININE 1.2 mg/dL (0.6-1.0); GFR 53.7; POTASSIUM 4.2 mmol/L (3.5-5.1)
[2021-10-02] MEDS ORDERED: QUET25TA3 PO (08:52)
[2021-10-02] MEDS: QUEtiapine 25 MG TABLET. PO SCH (09:00)
--- NOTE | 2021-10-02 10:29 | NUR ---
Pt left unit by ambulation at 1025 via private vehicle, accompanied by son, Devonte. Pt's IV removed without complication, refused am VS. Discharge paperwork discussed with pt and son, additional questions by son addressed.
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
--- NOTE | 2021-10-02 11:31 | NUR ---
SW following. Discussed with RN, pt cleared by PAT team. Discharge order for home with self care. RN advised no SW needs. Pt already left unit.
--- NOTE | 2021-10-02 12:04 | PDOC ---
PROGRESS NOTES Date of Service DATE: 10/02/21 TIME: 12:00 Assessment Problems Medical Problems: (1) Altered mental status Status: Acute (2) Delirium Status: Acute Psychosis, positive urine drug screen for marijuana, she does know where she is in the date, so I doubt stroke, dementia, or encephalitis, but more likely a psychiatric issue. Negative EEG Elevated ESR, normal TSH and B12 Plan In between seeing the patient and writing this note, patient has been discharged Quetiapine. Psychiatric assessment team saw her and found her okay I did discuss with the patient's son and told him I thought she was having a nervous breakdown. He says that she has had this before. This discharge was made without my knowledge or consent. Subjective No complaint Objective Vital Signs Date Time Temp Pulse Resp B/P (MAP) Pulse Ox O2 Delivery O2 Flow Rate FiO2 10/02/21 08:30 Room Air 10/02/21 03:18 97.9 74 20 141/79 (99) 98 97.9 10/01/21 23:29 20.0 Intake and Output 10/02/21 07:00 Intake Total 700 ml Balance 700 ml Intake Oral 700 ml # Voids 6 # Bowel Movements 1 Review of Relevant I have reviewed the following items david (where applicable) has been applied. Labs Laboratory Tests Test 09/30/21 17:35 09/30/21 17:40 10/02/21 07:10 Urine Collection Type U cath Urine Color Yellow Urine Clarity Clear Urine pH 5.0 (<5.0-8.0) Urine Specific [place] 1.025 (1.000-1.030) Urine Protein 100 mg/dL (NEG-TRACE) Urine Glucose (UA) Negative mg/dL (NEG) Urine Ketones (Stick) 15 mg/dL (NEG) Urine Blood Large (NEG) Urine Nitrite Negative (NEG) Urine Bilirubin Negative (NEG) Urine Urobilinogen Dipstick 0.2 mg/dL (0.2 mg/dL) Urine Leukocyte Esterase Negative (NEG) Urine RBC Occ /HPF (0-2) Urine WBC Occ /HPF (0-4) Urine Squamous Epithelial Cells Few /LPF Urine Bacteria 0 /HPF (0-FEW) Urine Mucus Slight /LPF Urine Opiates Screen Neg (NEG) Urine Methadone Screen Neg (NEG) Urine Barbiturates Neg (NEG) Urine Phencyclidine Screen Neg (NEG) Urine Amphetamine/Methamphetamine Neg (NEG) Urine Benzodiazepines Screen Neg (NEG) Urine Cocaine Screen Neg (NEG) Urine Cannabinoids Screen Pos (NEG) Urine Ethyl Alcohol Neg (NEG) White Blood Count 7.0 x10^3/uL (4.0-11.0) 7.1 x10^3/uL (4.0-11.0) Red Blood Count 3.44 x10^6/uL (3.50-5.40) 3.35 x10^6/uL (3.50-5.40) Hemoglobin 11.4 g/dL (12.0-15.5) 11.2 g/dL (12.0-15.5) Hematocrit 34.4 % (36.0-47.0) 33.4 % (36.0-47.0) Mean Corpuscular Volume 100 fL (79-100) 100 fL (79-100) Mean Corpuscular Hemoglobin 33 pg (25-35) 33 pg (25-35) Mean Corpuscular Hemoglobin Concent 33 g/dL (31-37) 33 g/dL (31-37) Red Cell Distribution Width 14.7 % (11.5-14.5) 14.7 % (11.5-14.5) Platelet Count 255 x10^3/uL (140-400) 208 x10^3/uL (140-400) Neutrophils (%) (Auto) 70 % (31-73) 63 % (31-73) Lymphocytes (%) (Auto) 21 % (24-48) 26 % (24-48) Monocytes (%) (Auto) 8 % (0-9) 8 % (0-9) Eosinophils (%) (Auto) 1 % (0-3) 3 % (0-3) Basophils (%) (Auto) 1 % (0-3) 1 % (0-3) Neutrophils # (Auto) 4.9 x10^3/uL (1.8-7.7) 4.4 x10^3/uL (1.8-7.7) Lymphocytes # (Auto) 1.5 x10^3/uL (1.0-4.8) 1.8 x10^3/uL (1.0-4.8) Monocytes # (Auto) 0.5 x10^3/uL (0.0-1.1) 0.6 x10^3/uL (0.0-1.1) Eosinophils # (Auto) 0.1 x10^3/uL (0.0-0.7) 0.2 x10^3/uL (0.0-0.7) Basophils # (Auto) 0.1 x10^3/uL (0.0-0.2) 0.1 x10^3/uL (0.0-0.2) Sodium Level 141 mmol/L (136-145) 139 mmol/L (136-145) Potassium Level 4.1 mmol/L (3.5-5.1) 4.2 mmol/L (3.5-5.1) Chloride Level 104 mmol/L (98-107) 105 mmol/L (98-107) Carbon Dioxide Level 24 mmol/L (21-32) 25 mmol/L (21-32) Anion Gap 13 (6-14) 9 (6-14) Blood Urea Nitrogen 46 mg/dL (7-20) 40 mg/dL (7-20) Creatinine 1.3 mg/dL (0.6-1.0) 1.2 mg/dL (0.6-1.0) Estimated GFR (Cockcroft-Gault) 49.0 53.7 BUN/Creatinine Ratio 35 (6-20) Glucose Level 94 mg/dL (70-99) 97 mg/dL (70-99) Lactic Acid Level 1.0 mmol/L (0.4-2.0) Calcium Level 9.2 mg/dL (8.5-10.1) 9.1 mg/dL (8.5-10.1) Magnesium Level 2.5 mg/dL (1.8-2.4) Total Bilirubin 0.4 mg/dL (0.2-1.0) Aspartate Amino Transf (AST/SGOT) 69 U/L (15-37) Alanine Aminotransferase (ALT/SGPT) 44 U/L (14-59) Alkaline Phosphatase 72 U/L (46-116) Ammonia < 10 mcmol/L (11-34) GX-Ibk-[id number]-Type Natriuretic Peptide 172 pg/mL (0-124) Total Protein 8.3 g/dL (6.4-8.2) Albumin 3.6 g/dL (3.4-5.0) Albumin/Globulin Ratio 0.8 (1.0-1.7) Erythrocyte Sedimentation Rate 93 (0-25) Vitamin B12 Level > 2000 pg/mL (247-911) Thyroid Stimulating Hormone (TSH) 1.362 uIU/mL (0.358-3.74) Laboratory Tests Test 10/02/21 07:10 White Blood Count 7.1 x10^3/uL (4.0-11.0) Red Blood Count 3.35 x10^6/uL (3.50-5.40) Hemoglobin 11.2 g/dL (12.0-15.5) Hematocrit 33.4 % (36.0-47.0) Mean Corpuscular Volume 100 fL (79-100) Mean Corpuscular Hemoglobin 33 pg (25-35) Mean Corpuscular Hemoglobin Concent 33 g/dL (31-37) Red Cell Distribution Width 14.7 % (11.5-14.5) Platelet Count 208 x10^3/uL (140-400) Neutrophils (%) (Auto) 63 % (31-73) Lymphocytes (%) (Auto) 26 % (24-48) Monocytes (%) (Auto) 8 % (0-9) Eosinophils (%) (Auto) 3 % (0-3) Basophils (%) (Auto) 1 % (0-3) Neutrophils # (Auto) 4.4 x10^3/uL (1.8-7.7) Lymphocytes # (Auto) 1.8 x10^3/uL (1.0-4.8) Monocytes # (Auto) 0.6 x10^3/uL (0.0-1.1) Eosinophils # (Auto) 0.2 x10^3/uL (0.0-0.7) Basophils # (Auto) 0.1 x10^3/uL (0.0-0.2) Erythrocyte Sedimentation Rate 93 (0-25) Sodium Level 139 mmol/L (136-145) Potassium Level 4.2 mmol/L (3.5-5.1) Chloride Level 105 mmol/L (98-107) Carbon Dioxide Level 25 mmol/L (21-32) Anion Gap 9 (6-14) Blood Urea Nitrogen 40 mg/dL (7-20) Creatinine 1.2 mg/dL (0.6-1.0) Estimated GFR (Cockcroft-Gault) 53.7 Glucose Level 97 mg/dL (70-99) Calcium Level 9.1 mg/dL (8.5-10.1) Vitamin B12 Level > 2000 pg/mL (247-911) Thyroid Stimulating Hormone (TSH) 1.362 uIU/mL (0.358-3.74) Medications Current Medications Lorazepam (Ativan Inj) 1 mg 1X ONCE IVP Last administered on 09/30/21at 16:49; Start 09/30/21 at 15:45; Stop 09/30/21 at 15:46; Status DC Ziprasidone (Geodon Im) 20 mg 1X ONCE IM Last administered on 09/30/21at 16:48; Start 09/30/21 at 16:45; Stop 09/30/21 at 16:46; Status DC Lorazepam (Ativan Inj) 2 mg STK-MED ONCE .ROUTE ; Start 10/01/21 at 00:08; Stop 10/01/21 at 00:09; Status DC Lorazepam (Ativan Inj) 2 mg 1X ONCE IVP Last administered on 10/01/21at 00:13; Start 10/01/21 at 00:30; Stop 10/01/21 at 00:31; Status DC Ondansetron HCl (Zofran) 4 mg PRN Q8HRS PRN IVP NAUSEA/VOMITING 1ST CHOICE; Start 10/01/21 at 05:15; Stop 10/02/21 at 05:14; Status DC Acetaminophen (Tylenol) 650 mg PRN Q4HRS PRN PO FEVER > 100.3'F; Start 10/01/21 at 05:15; Stop 10/02/21 at 05:15; Status DC Nitroglycerin (Nitrostat) 0.4 mg PRN Q5MIN PRN SL CHEST PAIN; Start 10/01/21 at 05:15; Stop 10/02/21 at 05:15; Status DC Lorazepam (Ativan Inj) 1 mg PRN Q4HRS PRN IVP ANXIETY / AGITATION Last administered on 10/01/21at 21:49; Start 10/01/21 at 05:15; Stop 10/02/21 at 10:31; Status DC Ceftriaxone Sodium (Rocephin) 1 gm Q24H IVP ; Start 10/01/21 at 14:00; Stop 10/02/21 at 10:31; Status DC Sodium Chloride 1,000 ml @ 75 mls/hr [id number] IV ; Start 10/01/21 at 13:15; Stop 10/02/21 at 10:31; Status DC Quetiapine Fumarate (SEROquel) 25 mg TID PO Last administered on 10/01/21at 19:50; Start 10/01/21 at 16:30; Stop 10/02/21 at 10:31; Status DC Active Scripts Active Quetiapine Fumarate 25 Mg Tablet 25 Mg PO TID 30 Days Promethazine Hcl 6.25 Mg/5 Ml Syrup 5 Ml PO TID Prednisone 50 Mg Tablet 1 Tab PO DAILY Promethazine Hcl 6.25 Mg/5 Ml Syrup 5 Ml PO TID PRN Keflex (Cephalexin) 500 Mg Capsule 1 Cap PO BID [place] 5-325 Tablet (Acetaminophen/Hydrocodone Bitart) 1 Each Tablet 1 Tab PO PRN Q6HRS PRN Prednisone 20 Mg Tablet 1 Tab PO BID Zofran Odt (Ondansetron) 4 Mg Tab.rapdis 1 Tab SL Q8HRS Azithromycin Tablet (Azithromycin) 250 Mg Tablet 1 Pkg PO UD Reported Lasix (Furosemide) 40 Mg Tablet 1 Tab PO DAILY Bupropion Hcl Sr (Bupropion Hcl) 150 Mg Tablet.er 1 Tab PO BID Omeprazole 40 Mg Capsule.dr 1 Cap PO DAILY Meloxicam 15 Mg Tablet 1 Tab PO DAILY Vitamin D2 (Ergocalciferol (Vitamin D2)) 50,000 Unit Capsule 1 Cap PO WEEKLY Hydroxychloroquine Sulfate 200 Mg Tablet 1 Tab PO BID Prednisone 2.5 Mg Tablet 1 Tab PO DAILY Advair 100-50 Diskus (Fluticasone/Salmeterol) 1 Each Disk.w.dev 1 Puff IH BID Nasonex (Mometasone Furoate) 17 Gm [place].pump 1 [place] NS DAILY Cyclobenzaprine Hcl 10 Mg Tablet 1 Tab PO BID Escitalopram Oxalate 10 Mg Tablet 1 Tab PO DAILY Alprazolam 0.5 Mg Tablet 1 Tab PO BID Spiriva (Tiotropium [place]) 18 Mcg Cap.w.dev 1 Cap IH DAILY Potassium Chloride 10 Meq Tab.er.prt 1 Tab PO BID Lisinopril-Hctz 20-25 Mg Tab (Lisinopril/Hydrochlorothiazide) 1 Each Tablet 1 Tab PO DAILY Vitals/I & O Vital Sign - Last 24 Hours 10/01/21 10/01/21 10/01/21 10/02/21 19:00 19:31 23:29 03:18 Temp 98.3 97.9 98.3 97.9 Pulse 93 74 Resp 20 B/P (MAP) 145/90 (108) 141/79 (99) Pulse Ox 91 98 O2 Delivery Room Air Room Air Room Air Room Air O2 Flow Rate 20.0 10/02/21 08:30 O2 Delivery Room Air Intake and Output 10/01/21 10/01/21 10/02/21 15:00 23:00 07:00 Intake Total 100 ml 240 ml 360 ml Balance 100 ml 240 ml 360 ml Justicifation of Admission Dx: Justifications for Admission: Justification of Admission Dx: N/A OLYA CURTIS MD Oct 02, 2021 12:04
--- NOTE | 2021-10-02 12:07 | EEG ---
DATE OF SERVICE: 10/02/2021 ELECTROENCEPHALOGRAM REPORT EEG NUMBER: [id number] OBJECTIVE: The patient is a 71-year-old female with altered mental status. DESCRIPTION: This is a digital study. Electrodes are placed according to the International 10-20 system. Bipolar and referential montages are available. INTERPRETATION: The waking background consists of 8-9 Hz, 20-50 microvolt activity, symmetrically distributed over parietooccipital regions and reactive to eye opening. The patient was uncooperative with the testing and there is quite a bit of muscle artifact. She does achieve stage 2 sleep. Hyperventilation is not performed. Intermittent photic stimulation is noncontributory. IMPRESSION: This electroencephalogram with the patient awake and asleep is within normal limits. There is no focal, paroxysmal or epileptiform activity. Thank you for letting us help with the patient's care. LAISHA DR: Bernie TID: [id number]
== END 2021-10-02 10:31 | disposition home or self-care (01) | DRG 71 ==
LOC: ER 15:07 → ED HOLD 10-01 00:48 → 5 NORTH 10-01 05:00
PROVIDERS: ADMIT Internal Medicine; ATTEND Internal Medicine
DX: G93.41 Metabolic encephalopathy (principal); I13.0 Hypertensive heart and chronic kidney disease with heart failure and stage 1 through stage 4 chronic kidney disease, or unspecified chronic kidney disease; F29 Unspecified psychosis not due to a substance or known physiological condition; E86.0 Dehydration; E03.9 Hypothyroidism, unspecified; E78.5 Hyperlipidemia, unspecified; I50.9 Heart failure, unspecified; J44.9 Chronic obstructive pulmonary disease, unspecified; M06.9 Rheumatoid arthritis, unspecified; N18.9 Chronic kidney disease, unspecified; Z83.3 Family history of diabetes mellitus; F41.9 Anxiety disorder, unspecified; K21.9 Gastro-esophageal reflux disease without esophagitis; M19.90 Unspecified osteoarthritis, unspecified site; K59.00 Constipation, unspecified
CPT/HCPCS: 36415; 70450; 71045; 80048; 80053; 80307; 81001; 82140; 82607; 83605; 83735; 83880; 84443; 85025; 85651; 93005; 95816; 96374; J2060; J3486; 99285-25; G0378

== ENCOUNTER 2022-04-19 12:49 | Emergency (ER) | payer MEDICARE, OTHER ==
[~2022-04-19] VITALS: Ht 170.2 cm; Wt 95.3 kg
[~2022-04-19 12:49] MED LIST changes: -MOME17SP NS; +MOME17SP5 NS; +QUET25TA3 PO
[2022-04-19 12:55] VITALS: BP 15/60
--- NOTE | 2022-04-19 13:27 | PHYS DOC ---
Past Medical History Past Medical History: Anxiety, Arthritis, Asthma, CHF, COPD, GERD, Hypert ension, Other Additional Past Medical Histor: RA Past Surgical History: No Surgical History Smoking Status: Unknown if ever smoked Alcohol Use: None Drug Use: None General Adult EDM: Chief Complaint: MECHANICAL FALL HPI: HPI: Patient is a 72-year-old female who presents today with right upper arm pain. Patient states that on Thursday she fell hitting her arm against the railing of her deck, she states that she presents today because he is large amount of bruising that is noted in her upper arm and she is concerned by this. Patient denies taking any blood thinners, she denies hitting her head, she denies any loss of consciousness. Patient states that she normally walks with a assist device on a normal basis and this injury has not hindered her using her assist device at this time. Review of Systems: Review of Systems: Constitutional: Denies fever or chills. [] Eyes: Denies change in visual acuity. [] HENT: Denies nasal congestion or sore throat. [] Respiratory: Denies cough or shortness of breath. [] Cardiovascular: Denies chest pain or edema. [] GI: Denies abdominal pain, nausea, vomiting, bloody stools or diarrhea. [] : Denies dysuria. [] Musculoskeletal: Denies back pain or joint pain. [] Integument: Right upper arm bruising Neurologic: Denies headache, focal weakness or sensory changes. [] Endocrine: Denies polyuria or polydipsia. [] Lymphatic: Denies swollen glands. [] Psychiatric: Denies depression or anxiety. [] Heart Score: C/O Chest Pain: No Risk Factors: Risk Factors: DM, Current or recent (<one month) smoker, HTN, HLP, family history of CAD, obesity. Risk Scores: Score 0 - 3: 2.5% MACE over next 6 weeks - Discharge Home Score 4 - 6: 20.3% MACE over next 6 weeks - Admit for Clinical Observation Score 7 - 10: 72.7% MACE over next 6 weeks - Early Invasive Strategies Allergies: Allergies: Allergies Coded Allergies Type Severity Reaction Last Updated Verified aspirin Allergy Intermediate Swelling 09/01/14 No Physical Exam: PE: Constitutional: Well developed, well nourished, no acute distress, non-toxic appearance. [] HENT: Normocephalic, atraumatic, bilateral external ears normal, oropharynx moist, no oral exudates, nose normal. [] Eyes: PERRLA, EOMI, conjunctiva normal, no discharge. [] Neck: Normal range of motion, no tenderness, supple, no stridor. [] Cardiovascular:Heart rate regular rhythm, no murmur [] Lungs & Thorax: Bilateral breath sounds clear to auscultation [] Abdomen: Bowel sounds normal, soft, no tenderness, no masses, no pulsatile masses. [] Skin: Patient has a large ecchymotic area from the mid humerus down past the elbow on the lateral aspect of the arm, there is no lacerations, abrasions, or wounds noted. Patient also has some bruising noted on her left upper arm she has a 2 x 1 cm area of ecchymosis on the inner aspect of her humerus patient also has some bruising noted on her left hand on the volar aspect. Back: No tenderness, no CVA tenderness. [] Extremities: Bilateral arms within normal limits range of motion, no sensory or vascular defects noted, radial pulse is 2+ distal to the bruising, cap refills less than 2 seconds, Neurologic: Alert and oriented X 3, normal motor function, normal sensory function, no focal deficits noted. [] Psychologic: Affect normal, judgement normal, mood normal. [] Current Patient Data: Vital Signs: Vital Signs Date Time Temp Pulse Resp B/P (MAP) Pulse Ox O2 Delivery O2 Flow Rate FiO2 04/19/22 12:55 98.8 77 18 15/60 (45) 96 Room Air 98.8 EKG: EKG: [] Radiology/Procedures: Radiology/Procedures: REASON: fell and hit arm PROCEDURE: HUMERUS RIGHT Right humerus 2 views. HISTORY: Fell with trauma to right arm, pain 2 views were taken of the right humerus. There is not evidence of an acute fracture or osseous abnormality. There is no dislocation at the shoulder. There is mild widening of the AC joint probably old surgery but prior trauma is possible. IMPRESSION: 1. No fracture or acute osseous abnormality right humerus. Electronically signed by: Ramon Rondon MD (04/19/2022 1:44 PM) [id number] [] Course & Med Decision Making: Course & Med Decision Making Pertinent Labs and Imaging studies reviewed. (See chart for details) I reviewed radiological results with Dr. Gutierrez no acute findings noted, patient is in no acute distress and is able to use her assist device and ambulate without any difficulty as well as move her upper extremities without any difficulty. Patient will be discharged to home to follow-up with her primary care physician as well as take [id number] Tylenol as needed for pain. Patient will also be given the name of the orthopedic doctor on-call so that she may follow-up with them for any further concerns she may have. Dragon Disclaimer: Dragon Disclaimer: This electronic medical record was generated, in whole or in part, using a voice recognition dictation system. Departure Departure Impression: Primary Impression: Contusion, arm, upper Qualified Codes: S40.021A - Contusion of right upper arm, initial encounter Disposition: HOME / SELF CARE / HOMELESS Condition: STABLE Referrals: SPENSER PRICE MD (PCP) NADER PALACIOS DO Patient Instructions: Contusion Additional Instructions: Ice 20 minutes on 3-4 times daily to help with localized pain relief and swelling Tylenol as needed for pain Follow-up with your primary care physician or the orthopedic doctor on-call for any further evaluation and management of this arm pain. COREY ACEVES ANALYSIS MGR April 19, 2022 13:27
[2022-04-19] MEDS ORDERED: ACETAMINOPHEN 325 MG TABLET. PO ONE (13:30)
--- NOTE | 2022-04-19 13:46 | RAD ---
Right humerus 2 views. HISTORY: Fell with trauma to right arm, pain 2 views were taken of the right humerus. There is not evidence of an acute fracture or osseous abnorm ality. There is no dislocation at the shoulder. There is mild widening of the AC joint probably old s urgery but prior trauma is possible. IMPRESSION: 1. No fracture or acute osseous abnormality right humerus. Electronically signed by: Ramon Rondon MD (04/19/2022 1:44 PM) [id number]
== END 2022-04-19 13:54 | disposition home or self-care (01) ==
LOC: ER 12:49
DX: S40.021A Contusion of right upper arm, initial encounter (principal); J44.9 Chronic obstructive pulmonary disease, unspecified; K21.9 Gastro-esophageal reflux disease without esophagitis; I11.0 Hypertensive heart disease with heart failure; I50.9 Heart failure, unspecified; Z88.6 Allergy status to analgesic agent; W18.09XA Striking against other object with subsequent fall, initial encounter; Y93.89 Activity, other specified; Y92.89 Other specified places as the place of occurrence of the external cause; Y99.8 Other external cause status
CPT/HCPCS: 73060; 99283

== ENCOUNTER 2022-04-22 12:48 | Emergency (ER) | payer MEDICARE, OTHER ==
[~2022-04-22] VITALS: Ht 170.2 cm; Wt 93.8 kg
[2022-04-22 12:50] VITALS: BP 181/89
--- NOTE | 2022-04-22 14:18 | PHYS DOC ---
Past Medical History Past Medical History: Anxiety, Arthritis, Asthma, CHF, COPD, GERD, Hypert ension, Other Additional Past Medical Histor: RA Past Surgical History: No Surgical History Smoking Status: Unknown if ever smoked Alcohol Use: None Drug Use: None General Adult EDM: Chief Complaint: UPPER EXTREMITY PAIN HPI: HPI: Patient is a 72 year old female who presents with was here on April 19 for a fall and diagnosed with a contusion to the right arm. Patient states the reason why she is here because she wants blood drawn and that when she was here the last time they offered to draw some blood and she refused. Patient does not know what lab they wanted to draw. She states she cannot get into her primary care until next month. She denies chest pain, shortness of air, headache, dizziness, syncope, urinary symptoms, back pain, abdominal pain, nausea, vomiting, diarrhea, fever, numbness tingling, focal weakness, vision change, cough. States her arm still has some pain 4 out of 10. Review of Systems: Review of Systems: Constitutional: Denies fever or chills. [] Eyes: Denies change in visual acuity. [] HENT: Denies nasal congestion or sore throat. [] Respiratory: Denies cough or shortness of breath. [] Cardiovascular: Denies chest pain or edema. [] GI: Denies abdominal pain, nausea, vomiting, bloody stools or diarrhea. [] : Denies dysuria. [] Musculoskeletal: Denies back pain or joint pain. + Right arm pain [] Integument: Denies rash. + Right upper arm contusion [] Neurologic: Denies headache, focal weakness or sensory changes. [] Endocrine: Denies polyuria or polydipsia. [] Lymphatic: Denies swollen glands. [] Psychiatric: Denies depression or anxiety. [] Heart Score: C/O Chest Pain: No Risk Factors: Risk Factors: DM, Current or recent (<one month) smoker, HTN, HLP, family history of CAD, obesity. Risk Scores: Score 0 - 3: 2.5% MACE over next 6 weeks - Discharge Home Score 4 - 6: 20.3% MACE over next 6 weeks - Admit for Clinical Observation Score 7 - 10: 72.7% MACE over next 6 weeks - Early Invasive Strategies Allergies: Allergies: Allergies Coded Allergies Type Severity Reaction Last Updated Verified aspirin Allergy Intermediate Swelling 09/01/14 No Physical Exam: PE: Constitutional: Well developed, well nourished, no acute distress, non-toxic appearance. [] HENT: Normocephalic, atraumatic, bilateral external ears normal, oropharynx moist, no oral exudates, nose normal. [] Eyes: PERRLA, EOMI, conjunctiva normal, no discharge. [] Neck: Normal range of motion, no tenderness, supple, no stridor. [] Cardiovascular:Heart rate regular rhythm, no murmur [] Lungs & Thorax: Bilateral breath sounds clear to auscultation [] Abdomen: Bowel sounds normal, soft, no tenderness, no masses, no pulsatile masses. [] Skin: Warm, dry, no erythema, no rash. Right upper arm contusion [] Back: No tenderness, no CVA tenderness. [] Extremities: No tenderness, no cyanosis, no clubbing, ROM intact, no edema. [] Neurologic: Alert and oriented X 3, normal motor function, normal sensory function, no focal deficits noted. [] Psychologic: Affect normal, judgement normal, mood normal. [] Current Patient Data: Vital Signs: Vital Signs Date Time Temp Pulse Resp B/P (MAP) Pulse Ox O2 Delivery O2 Flow Rate FiO2 04/22/22 12:50 98.1 85 18 181/89 (119) 95 Room Air 98.1 EKG: EKG: [] Radiology/Procedures: Radiology/Procedures: [] Course & Med Decision Making: Course & Med Decision Making Pertinent Labs and Imaging studies reviewed. (See chart for details) See HPI. Alert and oriented x4. Ambulatory steady gait. Right upper arm has a healing bruise. X-ray that was done on April 19 showed no acute findings. She is using the arm appropriately. Equal strengths. No tenderness. Radial pulse strong and present. Cap refill less than 2 seconds. Full range of motion of all joints without any swelling, redness or deformity. Afebrile. When looking back to the patient's chart I see nothing about blood work wanting to be done or patient refusing any type of blood work. Patient is unsure and she did hand me her discharge paperwork of which said nothing about blood work needing done. Patient states that she will follow-up with her primary care provider. [] Monica Disclaimer: Monica Disclaimer: This electronic medical record was generated, in whole or in part, using a voice recognition dictation system. Departure Departure Impression: Primary Impression: Encounter for medical screening examination Disposition: HOME / SELF CARE / HOMELESS Condition: STABLE Referrals: SPENSER PRICE MD (PCP) Patient Instructions: Medical Screening Exam Additional Instructions: Follow-up with a primary care provider. Take Tylenol for your pain. Use ice to the area of the contusion. JETHRO [employer]A [employer] April 22, 2022 14:18
== END 2022-04-22 14:54 | disposition home or self-care (01) ==
LOC: ER 12:48
DX: Z00.00 Encounter for general adult medical examination without abnormal findings (principal); M79.601 Pain in right arm; M19.90 Unspecified osteoarthritis, unspecified site; J44.9 Chronic obstructive pulmonary disease, unspecified; I11.0 Hypertensive heart disease with heart failure; I50.9 Heart failure, unspecified; K21.9 Gastro-esophageal reflux disease without esophagitis; M06.9 Rheumatoid arthritis, unspecified; Z88.6 Allergy status to analgesic agent
CPT/HCPCS: 99282